=== PATIENT | female | born 1965 | race Caucasian/White ===

== ENCOUNTER 2020-08-28 22:01 | Emergency (ER) | payer SELFPAY ==
[~2020-08-28] VITALS: Ht 162.6 cm; Wt 70.3 kg
[2020-08-28 22:47] VITALS: BP 128/69
[2020-08-28] MEDS ORDERED: FLUORESCEIN SODIUM OPHTH 1 EA STRIP ONE (22:53)
== END 2020-08-28 23:25 | disposition home or self-care (01) ==
LOC: ER 22:06
DX: S05.01XA Injury of conjunctiva and corneal abrasion without foreign body, right eye, initial encounter (principal); X58.XXXA Exposure to other specified factors, initial encounter; Y93.89 Activity, other specified; Y92.89 Other specified places as the place of occurrence of the external cause; Y99.8 Other external cause status

== ENCOUNTER 2021-07-01 23:54 | Inpatient (IN) | payer MEDICAID, OTHER ==
[~2021-07-01] VITALS: Ht 162.6 cm; Wt 72.6 kg
--- NOTE | 2021-07-02 00:14 | NUR ---
PRESENTED TO THE ER VIA RA FROM HOME FOR C/O WORSENING SOB. PT TESTED + FOR COVID 19 SINCE 06/22. PER EMS PT WAS HOLDING O2 SAT OF 85% ON R/A. PT WAS PLACED IN BED 5 ER, ON MONITOR AND SUPPLEMENTAL O2 OF 5LPM VIA NC. NEEDS ATTENDED . WILL CONT TO MONITOR ,
--- NOTE | 2021-07-02 00:17 | NUR ---
BLOOD WORK AND CULTURES TAKEN AND SENT TO LAB.
--- NOTE | 2021-07-02 00:21 | NUR ---
COVID SWAB TAKEN AND SENT TO LAB.
[2021-07-02 00:32] LABS: BASOPHILS % (AUTO) 0.4 % (0.0-2.0); EOSINOPHILS % (AUTO) 0.7 % (0.0-6.0); HEMATOCRIT 36 % (33-45); HEMOGLOBIN 12.3 g/dL (11.5-14.8); LYMPHOCYTES # (AUTO) 1.5 K/uL (0.8-4.8); LYMPHOCYTES % (AUTO) 14.8 % (20.0-44.0); MEAN CORPUSCULAR HGB CONC 34 g/dl (31.0-36.0); MEAN CORPUSCULAR VOLUME 86 fL (82-100); MONOCYTES # (AUTO) 0.8 K/uL (0.1-1.30); NEUTROPHILS # (AUTO) 7.6 K/uL (1.8-8.9); NEUTROPHILS % (AUTO) 76.1 % (43.0-81.0); PLATELET COUNT (AUTO) 463 K/uL (150-450); RED BLOOD CELL COUNT(AUTO) 4.21 MIL/uL (4.0-5.2)
--- NOTE | 2021-07-02 00:45 | NUR ---
CHARGER TESTER AT BEDSIDE
--- NOTE | 2021-07-02 00:46 | NUR ---
MRSA SWAB COLLECTED AND SENT TO LAB. PATIENT'S BELONGINGS LIST DONE.
[2021-07-02 00:55] LABS: CALCIUM, SERUM 8.8 mg/dL (8.5-10.1); CARBON DIOXIDE 24 mmol/L (21-32); CHLORIDE 102 mmol/L (98-107); CREATININE 0.8 mg/dL (0.6-1.3); GLUCOSE 117 mg/dL (74-106); POTASSIUM 4.1 mmol/L (3.5-5.1); SODIUM SERUM 139 mmol/L (136-145); UREA NITROGEN, BLOOD 11 mg/dL (7-18)
[2021-07-02] MEDS ORDERED: AZITHROMYCIN 500 MG VIAL ONE (00:56)
[2021-07-02] MEDS ORDERED: CEFTRIAXONE 1GM BAG (ER ONLY) 50 ML IV ONE (00:56)
[2021-07-02] MEDS ORDERED: AZITHROMYCIN 500 MG in IV D5W 250 ML IV ONE (01:00)
[2021-07-02] MEDS ORDERED: CEFTRIAXONE 1 G in IV D5W 50 ML IV ONE (01:00)
[2021-07-02 01:04] LABS: ALANINE AMINOTRANSFERASE 73 U/L (12-78); ALBUMIN 2.7 g/dL (3.4-5.0); ALKALINE PHOSPHATASE 137 U/L (46-116); ASPARTATE AMINOTRANSFERASE 41 U/L (15-37); BILIRUBIN,TOTAL 0.5 mg/dL (0.2-1.0); TOTAL PROTEIN, SERUM 7.4 g/dL (6.4-8.2)
[2021-07-02 01:24] LABS: CREATINE KINASE, TOTAL 40 U/L (26-192); FERRITIN 1195 ng/mL (8-388)
[2021-07-02 01:26] LABS: C-REACTIVE PROTEIN 13.5 mg/dL (0.0-0.9)
--- NOTE | 2021-07-02 02:35 | NUR ---
REPORT GIVEN TO CHRISTIANO ARTIS.
--- NOTE | 2021-07-02 03:20 | NUR ---
pt was transferred to rm 120 under acls
--- NOTE | 2021-07-02 03:25 | NUR ---
RN NOTE PT TRANSFERRED FROM ER TO [facility]. PT IS NOW ON 6L OF VIA IA SHOWING NO S/S OF RESP DISTRESS. PT IS A&OX3. PT NOW ON TELE MONITOR SHOWING NSR. SKIN INTACT. PT HAS LEFT AC GAUGE 18, FLUSHED, PATENT, AND INTACT WITH NO INFILTRATION. ALL SAFETY MEASURES IMPLEMENTED. CALL LIGHT WITHIN REACH. BED ALARM ON. BED LOCKED AND IN LOWEST POSITION. WILL CONTINUE TO MONITOR THROUGHOUT THE SHIFT.
[2021-07-02 04:00] VITALS: BP 114/66
[2021-07-02] MEDS ORDERED: HYDROCODONE/APAP 5/325MG TABLET PO PRN (06:30)
[2021-07-02] MEDS ORDERED: ONDANSETRON HCL/PF 4 MG/2 ML VIAL IVP PRN (06:30)
[2021-07-02] MEDS ORDERED: ALBUTEROL SULFATE INH 18 GM HFA.AER.AD IH PRN (06:30)
[2021-07-02] MEDS ORDERED: ACETAMINOPHEN 325 MG TABLET PO PRN (06:30)
--- NOTE | 2021-07-02 07:04 | NUR ---
RN NOTE NO CHANGES IN PT CONDITION DURING SHIFT. PT IS ON 6L OF O2 VIA NC WITH O2 SATURATION >95% SHOWING NO S/S OF RESP DISTRESS. PT IS ON TELE MONITOR SHOWING NSR. SKIN INTACT. PT IS A&OX3. LEFT AC FLUSHED, PATENT, AND INTACT WITH NO INFILTRATION. PT KEPT CLEAN AND COMFORTABLE. ALL SAFETY MEASURES IMPLEMENTED. CALL LIGHT WITHIN REACH. BED LOCKED AND IN LOWEST POSITION. BED ALARM ON. WILL ENDORSE TO MORNING SHIFT RN FOR MARILYNN.
[2021-07-02 07:09] LABS: BASOPHILS % (AUTO) 0.2 % (0.0-2.0); EOSINOPHILS % (AUTO) 0.6 % (0.0-6.0); HEMATOCRIT 34 % (33-45); HEMOGLOBIN 11.8 g/dL (11.5-14.8); LYMPHOCYTES # (AUTO) 1.1 K/uL (0.8-4.8); LYMPHOCYTES % (AUTO) 11.2 % (20.0-44.0); MEAN CORPUSCULAR HGB CONC 34 g/dl (31.0-36.0); MEAN CORPUSCULAR VOLUME 86 fL (82-100); MONOCYTES # (AUTO) 0.8 K/uL (0.1-1.30); MONOCYTES % (AUTO) 7.9 % (2.0-12.0); NEUTROPHILS # (AUTO) 7.8 K/uL (1.8-8.9); NEUTROPHILS % (AUTO) 80.1 % (43.0-81.0); PLATELET COUNT (AUTO) 481 K/uL (150-450); RED BLOOD CELL COUNT(AUTO) 4.01 MIL/uL (4.0-5.2); WHITE BLOOD COUNT (AUTO) 9.7 K/uL (4.3-11.0)
--- NOTE | 2021-07-02 07:40 | NUR ---
WINDOWS CONSULTANT OPENING NOTE PATIENT CURRENTLY LYING IN BED, AWAKE. A/O X3. ON 6L OXYGEN VIA NASAL CANNULA WITH O2 SATURATION >95% AT REST. NO SOB NOTED. NO DISTRESS/DISCOMFORT NOTED AT THIS TIME. TELE MONITOR READS SINUS RHYTHM. IV ACCESS TO LEFT AC #18 - INTACT AND PATENT - SALINE LOCKED. SAFETY MEASURES IN PLACE. CALL LIGHT WITHIN REACH. WILL CONTINUE TO MONITOR.
[2021-07-02 08:00] VITALS: BP 112/68
[2021-07-02] MEDS: ZINC SULFATE 220 MG CAPSULE PO SCH (08:25)
[2021-07-02] MEDS: DEXAMETHASONE SOD PHOSPHATE 10 MG/ML VIAL IV SCH (08:25)
[2021-07-02] MEDS: DOCUSATE SODIUM 100 MG CAPSULE PO SCH ×2 (08:25→18:25)
[2021-07-02] MEDS: CHOLECALCIFEROL 1,000 UNIT TABLET (VIT D3) PO SCH (08:25)
[2021-07-02] MEDS: ASCORBIC ACID 500 MG TABLET PO SCH (08:25)
[2021-07-02] MEDS: PANTOPRAZOLE 40 MG TABLET.DR PO SCH (08:25)
[2021-07-02] MEDS: ENOXAPARIN SODIUM 40 MG/0.4 ML DISP.SYRIN SQ SCH (08:27)
[2021-07-02 09:06] LABS: ALBUMIN 2.5 g/dL (3.4-5.0); BILIRUBIN,TOTAL 0.4 mg/dL (0.2-1.0); CALCIUM, SERUM 8.9 mg/dL (8.5-10.1); CREATININE 0.7 mg/dL (0.6-1.3); MAGNESIUM 2.5 mg/dL (1.8-2.4); PHOSPHORUS 3.5 mg/dL (2.5-4.9); POTASSIUM 4.1 mmol/L (3.5-5.1); TOTAL PROTEIN, SERUM 7.1 g/dL (6.4-8.2)
[2021-07-02 09:49] LABS: THYROID STIMULATING HORMONE 1.668 uIU/mL (0.358-3.74)
[2021-07-02 12:02] VITALS: BP 111/68
--- NOTE | 2021-07-02 15:18 | NUR ---
TRANSFERRED CARE OF PATIENT TO [facility]. REPORT GIVEN.
[2021-07-02 18:21] VITALS: BP 114/72
--- NOTE | 2021-07-02 19:20 | NUR ---
RN NOTE RECEIVED PATIENT IN BED RESTING ALERT ORIENTED X3 VERBALLY RESPONSIVE ON 6L OXYGEN O2:95% IV SITE IS ON LEFT AC INTACT PATENT SAFETY MEASURE IMPLEMENT CALL LIGHT WITHIN REACH,CONTINUE TO MONITOR.
[2021-07-02 20:00] VITALS: BP 128/68
[2021-07-02] MEDS: CEFTRIAXONE 1 G in IV D5W 50 ML IV SCH (20:11)
--- NOTE | 2021-07-02 21:10 | NUR ---
RN NOTE REPORT GIVEN TO IRINA ALVARADO
--- NOTE | 2021-07-02 21:15 | NUR ---
RN NOTE PT IN BED, AWAKE. ALERT AN ORIENTED. ON O2 AT 6L VIA NC. DENIES ANY PAIN OR SOB. NOT IN ANY DISTRESS. WILL CONTINUE TO MONITOR.
[2021-07-02] MEDS: AZITHROMYCIN 500 MG in IV D5W 250 ML IV SCH (22:20)
[2021-07-03] VITALS: BP 127/58
--- NOTE | 2021-07-03 01:00 | NUR ---
RN NOTE NOTED LAC IV INFILTRATED, REMOVED. NEW IV LINE INSERTED ON RWRIST 22G, WITH GOOD BLOOD RETURN, FLUSHES WELL.
[2021-07-03 04:00] VITALS: BP 113/60
--- NOTE | 2021-07-03 06:31 | NUR ---
RN NOTE PT SLEEPING AROUSES EASILY. CONTINUE ON O2 THERAPY AT 6L VIA NC, SATING 94-96%. DENIES ANY SOB. NO DISTRESS NOTED. TELE SHOWS SB/SR. PT ABLE TO MAKE NEEDS KNOWN. NEEDS WERE ATTENDED. NO SIGNIFICANT CHANGES NOTED. WILL ENDORSE TO NEXT SHIFT NURSE FOR MARILYNN.
--- NOTE | 2021-07-03 07:30 | NUR ---
RN NOTE PATIENT OBSERVED IN BED, AWAKE ALERT AND ORIENTED X4 ABLE TO VERBALIZE NEEDS, ON O2 VIA NC @6LPM O2S AT OF95% BREATHING EVEN AND UNLABORED, CONTINUE TO TITRATE O2 TOLERATED, ON TELE MONITOR SR HR OF 67, NO COMPLAIN OF PAIN, ON DVT PPX NO BLEEDING NOTED, SAFETY MEASURES OBSERVED, BED WHEELS LOCK, CALL LIGHT WITHIN REACH, WILL CONTINUE TO MONITOR.
[2021-07-03 08:00] VITALS: BP 121/64
[2021-07-03] MEDS: PANTOPRAZOLE 40 MG TABLET.DR PO SCH (08:07)
[2021-07-03] MEDS: ASCORBIC ACID 500 MG TABLET PO SCH (09:40)
[2021-07-03] MEDS: ZINC SULFATE 220 MG CAPSULE PO SCH (09:40)
[2021-07-03] MEDS: CHOLECALCIFEROL 1,000 UNIT TABLET (VIT D3) PO SCH (09:40)
[2021-07-03] MEDS: ENOXAPARIN SODIUM 40 MG/0.4 ML DISP.SYRIN SQ SCH (09:40)
[2021-07-03] MEDS: DOCUSATE SODIUM 100 MG CAPSULE PO SCH ×2 (09:40→16:37)
[2021-07-03] MEDS: DEXAMETHASONE SOD PHOSPHATE 10 MG/ML VIAL IV SCH (09:41)
[2021-07-03 12:00] VITALS: BP 121/70
--- NOTE | 2021-07-03 14:00 | NUR ---
RN NOTE PATIENT SEEN BY DR. ZHOU BENITEZ, UPDATED MD REGARDING PATIENT CURRENT CONDITION
[2021-07-03 16:00] VITALS: BP 131/82
--- NOTE | 2021-07-03 18:53 | NUR ---
RN NOTE PATIENT OBSERVED IN BED, AWAKE ALERT AND ORIENTED X4 ABLE TO VERBALIZE NEEDS, ON O2 VIA NC @5LPM O2 AT OF 96% BREATHING EVEN AND UNLABORED, CONTINUE TO TITRATE O2 TOLERATED, ON TELE MONITOR SB HR OF 58, NO COMPLAIN OF PAIN, ON DVT PPX NO BLEEDING NOTED, SAFETY MEASURES OBSERVED, BED WHEELS LOCK, CALL LIGHT WITHIN REACH, WILL CONTINUE TO MONITOR. WILL ENDORSE TO NOC SHIFT.
--- NOTE | 2021-07-03 19:21 | NUR ---
CONTINUITY OF CARE Patient in bed, A/O x4. On supplemental Oxygen at 5L via NC, denies chest pain. Sinus Luis HR 58 in the Tele monitor. Fall precaution maintained.
[2021-07-03 20:44] VITALS: BP 131/65
[2021-07-03] MEDS: CEFTRIAXONE 1 G in IV D5W 50 ML IV SCH (21:31)
[2021-07-03] MEDS: AZITHROMYCIN 500 MG in IV D5W 250 ML IV SCH (22:04)
[2021-07-04 01:01] VITALS: BP 108/61
[2021-07-04 04:40] VITALS: BP 119/59
[2021-07-04 06:36] LABS: BASOPHILS % (AUTO) 0.4 % (0.0-2.0); EOSINOPHILS % (AUTO) 0.5 % (0.0-6.0); HEMATOCRIT 36 % (33-45); HEMOGLOBIN 12.1 g/dL (11.5-14.8); LYMPHOCYTES # (AUTO) 1.8 K/uL (0.8-4.8); LYMPHOCYTES % (AUTO) 15.4 % (20.0-44.0); MEAN CORPUSCULAR HGB CONC 34 g/dl (31.0-36.0); MEAN CORPUSCULAR VOLUME 85 fL (82-100); MONOCYTES # (AUTO) 0.9 K/uL (0.1-1.30); MONOCYTES % (AUTO) 7.4 % (2.0-12.0); NEUTROPHILS # (AUTO) 9.1 K/uL (1.8-8.9); NEUTROPHILS % (AUTO) 76.3 % (43.0-81.0); PLATELET COUNT (AUTO) 580 K/uL (150-450); RED BLOOD CELL COUNT(AUTO) 4.17 MIL/uL (4.0-5.2); WHITE BLOOD COUNT (AUTO) 11.9 K/uL (4.3-11.0)
--- NOTE | 2021-07-04 06:42 | NUR ---
END OF SHIFT REPORT Patient in bed, A/O x4. On supplement Oxygen 5L via NC, Oxygen saturation in high 90's. Sinus ayan HR 45, patient denies chest pain, headache, dizziness. On IV Rocephin and Zithromax, Afebrile. Encourage activity and proning while in bed. Fall precaution maintained.
[2021-07-04 06:54] LABS: CALCIUM, SERUM 9.1 mg/dL (8.5-10.1); CREATININE 0.7 mg/dL (0.6-1.3); MAGNESIUM 2.5 mg/dL (1.8-2.4); PHOSPHORUS 3.5 mg/dL (2.5-4.9); POTASSIUM 4.1 mmol/L (3.5-5.1)
--- NOTE | 2021-07-04 07:40 | NUR ---
DIRECTOR OPERATIONS OPENING NOTES RECEIVED PATIENT ASLEEP IN BED, EASY TO AROUSE. ALERT AND ORIENTED X4. NO SIGNS OR SYMPTOMS OF DISTRESS NOTED. BREATHING IS EVEN AND UNLABORED. NO COMPLAINTS OF PAIN AT THIS TIME. NO IV ACCESS RWRIST#22 PATENT AND INTACT. PATIENT IS ON NC 5L WITH SPO2 SATURATING AT 94%-98%. PATIENT ON EXTERNAL TELE MONITOR WITH READING SB HR 45-47. SAFETY MEASURES ARE IN PLACE WITH BED LOCKED AT LOW POSITION, SIDE RAILS UP X 2. WILL CONTINUE TO MONITOR THROUGHOUT SHIFT.
--- NOTE | 2021-07-04 07:41 | NUR ---
TEACHER PUBLIC HEALTH NOTE LAB CALLED TO CONFIRM POSITIVE PCR FOR COVID 19. CHARGE NURSE AND MD MADE AWARE.
[2021-07-04 08:00] VITALS: BP 111/67
[2021-07-04] MEDS: PANTOPRAZOLE 40 MG TABLET.DR PO SCH (08:29)
[2021-07-04] MEDS: ZINC SULFATE 220 MG CAPSULE PO SCH (08:48)
[2021-07-04] MEDS: ENOXAPARIN SODIUM 40 MG/0.4 ML DISP.SYRIN SQ SCH (08:48)
[2021-07-04] MEDS: DEXAMETHASONE SOD PHOSPHATE 10 MG/ML VIAL IV SCH (08:48)
[2021-07-04] MEDS: ASCORBIC ACID 500 MG TABLET PO SCH (08:48)
[2021-07-04] MEDS: CHOLECALCIFEROL 1,000 UNIT TABLET (VIT D3) PO SCH (08:48)
[2021-07-04] MEDS: DOCUSATE SODIUM 100 MG CAPSULE PO SCH ×2 (08:48→16:47)
[2021-07-04 12:00] VITALS: BP 108/63
[2021-07-04] MEDS ORDERED: REMDESIVIR (CHARGED) 200 MG, *LOADING DOSE 1 EA in IV NS 0.9% 210 ML IV ONE (12:00)
--- NOTE | 2021-07-04 12:00 | NUR ---
PLANT AND MAINTENANCE TECHNICIAN NOTES PLACED PATIENT ON ROOM AIR WITH RESULTING O2 SATURATION AT 88%-89%. WILL PLACE BACK ON 5L NC AT THIS TIME.
[2021-07-04 16:00] VITALS: BP 102/55
--- NOTE | 2021-07-04 17:08 | NUR ---
SURGICAL ASSISTANT NOTES PATIENT IS IN BED WATCHING TV. NO SIGNS OR SYMPTOMS OF DISTRESS. NO COMPLAINTS OF PAIN AT THIS TIME. PATIENT IS ON 5L NC SATURATING AT 94%-97%. WILL CONTINUE TO OBSERVE FOR ANY CHANGE IN CONDITION.
--- NOTE | 2021-07-04 18:54 | NUR ---
ONSITE CASE MANAGER CLOSING NOTES PATIENT IS BED, RESTING. NO SIGNS OR SYMPTOMS OF DISTRESS NOTED. BREATHING IS EVEN AND UNLABORED. NO COMPLAINTS OF PAIN AT THIS TIME. IV ACCESS RWRIST#22 PATENT AND INTACT. ALL NEEDS MET THROUGHOUT SHIFT. PATIENT IS ON NC 5L WITH SPO2 SATURATING AT 94%-98%. PATIENT ON EXTERNAL TELE MONITOR WITH READING SB HR 53. SAFETY MEASURES MAINTAINED WITH BED LOCKED AT LOW POSITION, SIDE RAILS UP X 2. WILL ENDORSE CONTINUITY OF CARE TO ONCOMING SHIFT.
--- NOTE | 2021-07-04 19:20 | NUR ---
ASSEMBLY LINE MACHINE OPERATOR OPENING NOTES: RECEIVED PATIENT IN BED, AWAKE, A/O X4. NO S/S OF DISTRESS NOTED. NO COMPLAIN OF PAIN. CALL LIGHT WITHIN REACH. BED IN LOWEST AND LOCKED POSITION. HOB ELEVATED.
[2021-07-04 20:00] VITALS: BP 103/53
[2021-07-04] MEDS: CEFTRIAXONE 1 G in IV D5W 50 ML IV SCH (20:47)
[2021-07-04] MEDS: AZITHROMYCIN 500 MG in IV D5W 250 ML IV SCH (21:41)
[2021-07-05] VITALS: BP 99/63
[2021-07-05 04:00] VITALS: BP 109/64
--- NOTE | 2021-07-05 06:56 | NUR ---
SPORTS CARTOONIST CLOSING NOTES: PATIENT IN BED, AWAKE, A/O X4. NO S/S OF DISTRESS NOTED. NO COMPLAIN OF PAIN. CALL LIGHT WITHIN REACH. BED IN LOWEST AND LOCKED POSITION. RESTED THROUGHOUT THE NIGHT.
--- NOTE | 2021-07-05 07:12 | NUR ---
RN OPENING NOTE RECEIVED PATIENT ON BED ALERT AND ORIENTED X 4. PATIENT ON OXYGEN AT 5LPM VIA NASAL CANULA SATURATING AT 92%. ENCOURAGED TO DO DEEP BREATHING EXERCISES. ON TELE MONITOR WITH CARDIAC READING OF SR AT 60 BPM. PATIENT WITH IV ACCESS ON RIGHT HAND G22 ON SALINE LOCK, PATENT AND INTACT. SAFETY MEASURES IN PLACE: BED LOCKED AND IN LOWEST POSITION, CALL LIGHT WITHIN REACH, SIDE RAILS UP. ISOLATION PRECAUTION IN PLACE. WILL MONITOR PATIENT CLOSELY.
[2021-07-05 08:00] VITALS: BP 106/61
[2021-07-05 08:01] LABS: BASOPHILS % (AUTO) 0.3 % (0.0-2.0); EOSINOPHILS % (AUTO) 0.5 % (0.0-6.0); HEMATOCRIT 35 % (33-45); HEMOGLOBIN 12.1 g/dL (11.5-14.8); LYMPHOCYTES # (AUTO) 1.9 K/uL (0.8-4.8); LYMPHOCYTES % (AUTO) 18.5 % (20.0-44.0); MEAN CORPUSCULAR HGB CONC 34 g/dl (31.0-36.0); MEAN CORPUSCULAR VOLUME 86 fL (82-100); MONOCYTES # (AUTO) 0.8 K/uL (0.1-1.30); MONOCYTES % (AUTO) 7.5 % (2.0-12.0); NEUTROPHILS # (AUTO) 7.6 K/uL (1.8-8.9); NEUTROPHILS % (AUTO) 73.2 % (43.0-81.0); PLATELET COUNT (AUTO) 591 K/uL (150-450); RED BLOOD CELL COUNT(AUTO) 4.13 MIL/uL (4.0-5.2); WHITE BLOOD COUNT (AUTO) 10.4 K/uL (4.3-11.0)
[2021-07-05 08:35] LABS: ALBUMIN 2.6 g/dL (3.4-5.0); BILIRUBIN,DIRECT 0.1 mg/dL (0.0-0.2); BILIRUBIN,TOTAL 0.3 mg/dL (0.2-1.0); CALCIUM, SERUM 8.9 mg/dL (8.5-10.1); CREATININE 0.7 mg/dL (0.6-1.3); MAGNESIUM 2.5 mg/dL (1.8-2.4); PHOSPHORUS 3.8 mg/dL (2.5-4.9); POTASSIUM 3.8 mmol/L (3.5-5.1); TOTAL PROTEIN, SERUM 6.8 g/dL (6.4-8.2)
[2021-07-05] MEDS: ENOXAPARIN SODIUM 40 MG/0.4 ML DISP.SYRIN SQ SCH (08:58)
[2021-07-05] MEDS: ZINC SULFATE 220 MG CAPSULE PO SCH (09:01)
[2021-07-05] MEDS: CHOLECALCIFEROL 1,000 UNIT TABLET (VIT D3) PO SCH (09:01)
[2021-07-05] MEDS: ASCORBIC ACID 500 MG TABLET PO SCH (09:01)
[2021-07-05] MEDS: DOCUSATE SODIUM 100 MG CAPSULE PO SCH ×2 (09:01→17:12)
[2021-07-05] MEDS: PANTOPRAZOLE 40 MG TABLET.DR PO SCH (09:01)
[2021-07-05] MEDS: DEXAMETHASONE SOD PHOSPHATE 10 MG/ML VIAL IV SCH (09:02)
[2021-07-05 12:00] VITALS: BP 96/51
[2021-07-05] MEDS: REMDESIVIR (CHARGED) 100 MG in IV NS 0.9% 100 ML IV SCH (12:32)
[2021-07-05 16:00] VITALS: BP 116/60
--- NOTE | 2021-07-05 19:00 | NUR ---
RN CLOSING NOTE PATIENT ON BED ALERT AND ORIENTED X 4. PATIENT ON OXYGEN AT 5LPM VIA NASAL CANULA SATURATING AT 92%. ENCOURAGED TO DO DEEP BREATHING EXERCISES. ON TELE MONITOR WITH CARDIAC READING OF SR AT 60 BPM. PATIENT WITH IV ACCESS ON RIGHT HAND G22 ON SALINE LOCK, PATENT AND INTACT. SAFETY MEASURES IN PLACE: BED LOCKED AND IN LOWEST POSITION, CALL LIGHT WITHIN REACH, SIDE RAILS UP. ISOLATION PRECAUTION IN PLACE. ENDORSE PATIENT FOR CONTINUITY OF CARE.
[2021-07-05 20:00] VITALS: BP 100/60
[2021-07-05] MEDS: CEFTRIAXONE 1 G in IV D5W 50 ML IV SCH (20:34)
[2021-07-05] MEDS: AZITHROMYCIN 500 MG in IV D5W 250 ML IV SCH (21:14)
[2021-07-06] VITALS: BP 121/52
[2021-07-06 04:00] VITALS: BP 125/70
[2021-07-06 06:57] LABS: BASOPHILS % (AUTO) 0.3 % (0.0-2.0); EOSINOPHILS % (AUTO) 0.6 % (0.0-6.0); HEMATOCRIT 35 % (33-45); HEMOGLOBIN 12.3 g/dL (11.5-14.8); LYMPHOCYTES # (AUTO) 2.2 K/uL (0.8-4.8); MEAN CORPUSCULAR HGB CONC 35 g/dl (31.0-36.0); MEAN CORPUSCULAR VOLUME 86 fL (82-100); MONOCYTES # (AUTO) 0.8 K/uL (0.1-1.30); MONOCYTES % (AUTO) 7.1 % (2.0-12.0); NEUTROPHILS # (AUTO) 7.8 K/uL (1.8-8.9); PLATELET COUNT (AUTO) 618 K/uL (150-450); RED BLOOD CELL COUNT(AUTO) 4.12 MIL/uL (4.0-5.2); WHITE BLOOD COUNT (AUTO) 10.9 K/uL (4.3-11.0)
[2021-07-06 07:19] LABS: ALBUMIN 2.6 g/dL (3.4-5.0); BILIRUBIN,DIRECT 0.1 mg/dL (0.0-0.2); BILIRUBIN,TOTAL 0.3 mg/dL (0.2-1.0); CREATININE 0.7 mg/dL (0.6-1.3); MAGNESIUM 2.5 mg/dL (1.8-2.4); PHOSPHORUS 3.5 mg/dL (2.5-4.9); POTASSIUM 4.3 mmol/L (3.5-5.1); TOTAL PROTEIN, SERUM 6.7 g/dL (6.4-8.2)
[2021-07-06 08:00] VITALS: BP 103/58
[2021-07-06] MEDS: DEXAMETHASONE SOD PHOSPHATE 10 MG/ML VIAL IV SCH (08:19)
[2021-07-06] MEDS: CHOLECALCIFEROL 1,000 UNIT TABLET (VIT D3) PO SCH (08:19)
[2021-07-06] MEDS: DOCUSATE SODIUM 100 MG CAPSULE PO SCH ×2 (08:19→17:10)
[2021-07-06] MEDS: PANTOPRAZOLE 40 MG TABLET.DR PO SCH (08:19)
[2021-07-06] MEDS: ASCORBIC ACID 500 MG TABLET PO SCH (08:19)
[2021-07-06] MEDS: ZINC SULFATE 220 MG CAPSULE PO SCH (08:19)
[2021-07-06] MEDS: ENOXAPARIN SODIUM 40 MG/0.4 ML DISP.SYRIN SQ SCH (08:22)
[2021-07-06 12:00] VITALS: BP 105/56
[2021-07-06] MEDS: REMDESIVIR (CHARGED) 100 MG in IV NS 0.9% 100 ML IV SCH (12:20)
[2021-07-06 16:00] VITALS: BP 100/51
--- NOTE | 2021-07-06 19:11 | NUR ---
RN CLOSING NOTES NO SIGNIFICANT CHANGES THROUGHOUT THE SHIFT. NO SOB OR ANY DISTRESS NOTED. NO PAIN REPORTED AT THIS TIME. ALL DUE MEDS GIVEN. NEEDS ATTENDED. KEPT CLEAN AND COMFORTABLE. SAFETY MEASURES IN PLACE. WILL ENDORSE TO NIGHT RN FOR MARILYNN.
[2021-07-06 20:00] VITALS: BP 101/56
[2021-07-06] MEDS: AZITHROMYCIN 500 MG in IV D5W 250 ML IV SCH (20:55)
[2021-07-06] MEDS: CEFTRIAXONE 1 G in IV D5W 50 ML IV SCH (20:55)
--- NOTE | 2021-07-07 04:24 | NUR ---
RN notes Alert and oriented x 4. Verbally able to communicate needs. In bed, resting comfortably. Noted with episodes of bradycardia in low 40's. Pulse monitoring ordered. Visual monitoring done every 2 hours. No complaint of pain or discomfort. Kept clean and dry. Will endorse to next shift for continuity of care.
--- NOTE | 2021-07-07 07:48 | NUR ---
TELE/RN OPENING NOTES RECEIVED PT IN BED, A/O X 4. ON 5L O2 VIA NC, SATURATING @94%. NO SOB OR ANY S/S OF ACUTE RESPIRATORY DISTRESS NOTED. SR ON TELE MONITOR. IV ACCESS ON R HAND #22 INTACT, PATENT AND FLUSHED. NO PAIN REPORTED AT THIS TIME. SAFETY MEASURES IN PLACE. CALL LIGHT WITHIN REACH. BED LOCKED AND IN LOWEST POSITION WITH SIDE RAILS UP X2. ISOLATION PRECAUTION IN PLACE. WILL CONTINUE TO MONITOR.
[2021-07-07 08:06] LABS: ALBUMIN 2.6 g/dL (3.4-5.0); BILIRUBIN,DIRECT 0.1 mg/dL (0.0-0.2); BILIRUBIN,TOTAL 0.3 mg/dL (0.2-1.0); TOTAL PROTEIN, SERUM 6.5 g/dL (6.4-8.2)
[2021-07-07] MEDS: CHOLECALCIFEROL 1,000 UNIT TABLET (VIT D3) PO SCH (08:56)
[2021-07-07] MEDS: DEXAMETHASONE SOD PHOSPHATE 10 MG/ML VIAL IV SCH (08:56)
[2021-07-07] MEDS: ASCORBIC ACID 500 MG TABLET PO SCH (08:57)
[2021-07-07] MEDS: DOCUSATE SODIUM 100 MG CAPSULE PO SCH ×2 (08:57→16:18)
[2021-07-07] MEDS: ZINC SULFATE 220 MG CAPSULE PO SCH (08:57)
[2021-07-07] MEDS: PANTOPRAZOLE 40 MG TABLET.DR PO SCH (08:57)
[2021-07-07] MEDS: ENOXAPARIN SODIUM 40 MG/0.4 ML DISP.SYRIN SQ SCH (09:00)
[2021-07-07 10:43] VITALS: BP 99/49
[2021-07-07] MEDS: REMDESIVIR (CHARGED) 100 MG in IV NS 0.9% 100 ML IV SCH (12:10)
[2021-07-07 17:29] VITALS: BP 99/52
--- NOTE | 2021-07-07 18:54 | NUR ---
TELE/RN CLOSING NOTES PT IN BED, A/O X 4. OXYGEN NOW TITRATED TO 2 LPM VIA NASAL CANNULA, SATURATING @96%. NO SOB OR ANY S/S OF ACUTE RESPIRATORY DISTRESS NOTED. SR ON TELE MONITOR. IV ACCESS ON R HAND #22 INTACT, PATENT AND FLUSHED. NO PAIN REPORTED AT THIS TIME. SAFETY MEASURES IN PLACE. CALL LIGHT WITHIN REACH. BED LOCKED AND IN LOWEST POSITION WITH SIDE RAILS UP X2. ISOLATION PRECAUTION IN PLACE. WILL ENDORSE TO THE NEXT SHIFT FOR MARILYNN.
--- NOTE | 2021-07-07 19:55 | NUR ---
MIXER OPERATOR HELPER HOT METAL NOTE REC'D PT IN BED. PT IS A/O X4. DJIBOUTIAN SPEAKING, UNDERSTANDS UKRAINIAN ABLE TO MAKE NEEDS KNOWN. PT IS ON 2L OF O2 VIA NC, O2 SAT 97% AT THIS TIME. NO S/S OF RESP DISTRESS OR SOB NOTED. PT IS ON TELE MONITORING. NSR WITH HEART RATE OF 61 AT THIS TIME, PT BASELINE SB/SR. PT IV SITE, INTACT FLUSHED. PT DENIES PAIN. ALL NEEDS ATTENDED AT THIS TIME. SAFETY MEASURES IN PLACE. HOB ELEVATED. SIDE RAILS UP X2. BED LOCKED IN LOWEST POSITION WITH BED ALARM ON. CALL LIGHT WITHIN REACH. WILL CONT TO MONITOR THROUGHOUT SHIFT.
[2021-07-07 20:00] VITALS: BP 102/51
[2021-07-08] VITALS: BP 107/61
[2021-07-08 04:00] VITALS: BP 93/63
--- NOTE | 2021-07-08 06:54 | NUR ---
HUMAN CAPITAL ANALYST CLOSING NOTE NO SIGNIFICANT CHANGE IN PT CONDITION, PT REMAINS ON 2L OF O2 VIA NC, SATURATING AT 97%. NO DISTRESS NOTED. BREATHING EVEN AND UNLABORED. HYGIENE PRODUCTS PROVIDED. PT DENIES PAIN. ALL NEEDS ATTENDED AT THIS TIME. SAFETY MEASURES IN PLACE. BED LOCKED LOWEST POSITION. SIDE RAILS UP X2. CALL LIGHT WITHIN REACH WILL ENDORSE TO AM SHIFT FOR CONTINUATION OF CARE.
[2021-07-08 06:56] LABS: BASOPHILS # (AUTO) 0.1 K/uL (0.0-0.2); BASOPHILS % (AUTO) 1.4 % (0.0-2.0); EOSINOPHILS % (AUTO) 0.7 % (0.0-6.0); HEMATOCRIT 35 % (33-45); HEMOGLOBIN 12.2 g/dL (11.5-14.8); LYMPHOCYTES # (AUTO) 2.4 K/uL (0.8-4.8); LYMPHOCYTES % (AUTO) 23.8 % (20.0-44.0); MEAN CORPUSCULAR HGB CONC 35 g/dl (31.0-36.0); MEAN CORPUSCULAR VOLUME 85 fL (82-100); MONOCYTES # (AUTO) 0.8 K/uL (0.1-1.30); MONOCYTES % (AUTO) 8.2 % (2.0-12.0); NEUTROPHILS # (AUTO) 6.6 K/uL (1.8-8.9); NEUTROPHILS % (AUTO) 65.9 % (43.0-81.0); PLATELET COUNT (AUTO) 538 K/uL (150-450); RED BLOOD CELL COUNT(AUTO) 4.15 MIL/uL (4.0-5.2); WHITE BLOOD COUNT (AUTO) 9.9 K/uL (4.3-11.0)
--- NOTE | 2021-07-08 07:08 | NUR ---
TELE NOTES, RECEIVED PT ON BED. PT IS A/O X4. JAPANESE SPEAKING, UNDERSTANDS ALBANIAN ABLE TO MAKE NEEDS KNOWN. PT IS ON 2L OF O2 VIA NC, O2 SAT WNL, C/O SOB AT TIMES , PT IS ON TELE , SB-ST, IV SITE, INTACT FLUSHED. PT DENIES PAIN. ALL NEEDS ATTENDED AT THIS TIME. SAFETY MEASURES IN PLACE. HOB ELEVATED. SIDE RAILS UP X3. BED LOCKED IN LOWEST POSITION WITH BED ALARM ON. CALL LIGHT WITHIN REACH. WILL CONT TO MONITOR.
[2021-07-08 07:32] LABS: ALBUMIN 2.8 g/dL (3.4-5.0); BILIRUBIN,DIRECT 0.1 mg/dL (0.0-0.2); BILIRUBIN,TOTAL 0.4 mg/dL (0.2-1.0); CALCIUM, SERUM 9.2 mg/dL (8.5-10.1); CREATININE 0.8 mg/dL (0.6-1.3); MAGNESIUM 2.4 mg/dL (1.8-2.4); PHOSPHORUS 3.9 mg/dL (2.5-4.9); POTASSIUM 4.1 mmol/L (3.5-5.1); TOTAL PROTEIN, SERUM 6.6 g/dL (6.4-8.2)
[2021-07-08] MEDS ORDERED: ACET325T53 PO (07:59)
[2021-07-08] MEDS ORDERED: ASCO500T21 PO (07:59)
[2021-07-08] MEDS ORDERED: CHOL100062 PO (07:59)
[2021-07-08] MEDS ORDERED: ALBU18HF2 IH (07:59)
[2021-07-08] MEDS ORDERED: Zinc Sulfate PO (07:59)
[2021-07-08] MEDS ORDERED: DOCU-270 PO (07:59)
[2021-07-08] MEDS ORDERED: PANT40TA2 PO (07:59)
[2021-07-08 08:00] VITALS: BP 117/57
[2021-07-08] MEDS ORDERED: DEXA6TAB6 PO (08:00)
[2021-07-08] MEDS: DOCUSATE SODIUM 100 MG CAPSULE PO SCH (08:36)
[2021-07-08] MEDS: DEXAMETHASONE SOD PHOSPHATE 10 MG/ML VIAL IV SCH (08:36)
[2021-07-08] MEDS: CHOLECALCIFEROL 1,000 UNIT TABLET (VIT D3) PO SCH (08:36)
[2021-07-08] MEDS: ZINC SULFATE 220 MG CAPSULE PO SCH (08:36)
[2021-07-08] MEDS: ASCORBIC ACID 500 MG TABLET PO SCH (08:36)
[2021-07-08] MEDS: PANTOPRAZOLE 40 MG TABLET.DR PO SCH (08:36)
[2021-07-08] MEDS: ENOXAPARIN SODIUM 40 MG/0.4 ML DISP.SYRIN SQ SCH (08:37)
[2021-07-08 12:00] VITALS: BP 104/47
[2021-07-08] MEDS: REMDESIVIR (CHARGED) 100 MG in IV NS 0.9% 100 ML IV SCH (12:16)
--- NOTE | 2021-07-08 12:38 | NUR ---
RN NOTES PT DESATURATED TO 86% ON ROOM AIR AT REST , PLACED ON 2L O2 N/C , O2 SAT UP TO 93% ON 2L N/C
--- NOTE | 2021-07-08 13:55 | NUR ---
RN NOTES RA SAT IS 93% AT THIS TIME, DR ELI MONTILLA. PT CAN GO HOME PER DR BENITEZ ORDER .
--- NOTE | 2021-07-08 14:26 | NUR ---
RN NOTES DISCHARGE INSTRUCTION GIVEN TO PT , VERBALIZES UNDERSTANDING, O2 SAT 93% ON RA. AWAITING FOR PT'S DAUGHTER TO PICK HER UP TO GO HOME.
[2021-07-08 16:00] VITALS: BP 103/52
--- NOTE | 2021-07-08 16:16 | NUR ---
RN NOTES IV SITE D/CAROLINE, PT LEFT THE FLOOR TO MAIN ENTRANCE ACCOMPANIED BY DAUGHTER AND STAFF MEMBER IN STABLE CONDITION .
== END 2021-07-08 16:43 | disposition home or self-care (01) | DRG 137 ==
LOC: ER 23:54 → TELE1 07-02 03:12
PROVIDERS: ADMIT Nurse Practitioner Acute Care; ATTEND Nurse Practitioner Acute Care
PROC: XW033E5 Introduction of Remdesivir Anti-infective into Peripheral Vein, Percutaneous Approach, New Technology Group 5 (ICD-10-PCS; principal; 2021-07-05)
DX: U07.1 COVID-19 (principal); J96.01 Acute respiratory failure with hypoxia; J12.82 Pneumonia due to coronavirus disease 2019; Z87.891 Personal history of nicotine dependence; R74.01 Elevation of levels of liver transaminase levels; D72.810 Lymphocytopenia; D47.3 Essential (hemorrhagic) thrombocythemia
CPT/HCPCS: 36415; 71045-TC; 80048-TC; 80053-TC; 80061-TC; 80076-TC; 82550-TC; 82728-TC; 83605-TC; 83615-TC; 83735-TC; 84100-TC; 84443-TC; 84484-TC; 85025-TC; 85378-TC; 85610-TC; 85730-TC; 86140-TC; 87081-TC; 97112-TC; 97116-TC; 97530-TC; A4216; G0378; J0456; J0696; J1100; J1650; J7030; J7050; J7060; U0003